=== PATIENT | female | born 1950 | race Caucasian/White ===

== ENCOUNTER 2016-11-08 22:24 | Emergency (ER) | payer OTHER ==
[~2016-11-08] VITALS: Ht 160 cm; Wt 59.1 kg
[2016-11-09] MEDS ORDERED: MORPHINE 4 MG/ML 1ML SYRINGE IV ONE (00:15)
[2016-11-09 00:30] LABS: ALBUMIN 3.8 GM/DL (3.2-5.2); ALKALINE PHOSPHATASE 82 U/L (45-117); ALT/SGPT 17 U/L (12-78); AMYLASE 51 U/L (25-115); ANION GAP 5 MEQ/L (8-16); AST/SGOT 11 U/L (15-37); BILIRUBIN,DIRECT < 0.1 MG/DL (0.0-0.2); BILIRUBIN,TOTAL 0.5 MG/DL (0.2-1.0); BLOOD UREA NITROGEN 16 MG/DL (7-18); CALCIUM LEVEL 8.6 MG/DL (8.8-10.2); CARBON DIOXIDE LEVEL 29 MEQ/L (21-32); CHLORIDE LEVEL 105 MEQ/L (98-107); CREATININE FOR GFR 1.04 MG/DL (0.55-1.02); GLOMERULAR FILTRATION RATE 56.3 (>45); GLUCOSE, FASTING 97 MG/DL (80-110); POTASSIUM SERUM 3.6 MEQ/L (3.5-5.1); SODIUM LEVEL 139 MEQ/L (136-145); TOTAL PROTEIN 7.6 GM/DL (6.4-8.2)
[2016-11-09] MEDS ORDERED: INDO50SU2 PR (00:47)
[2016-11-09] MEDS ORDERED: ISOVUE-370 76% 100ML VIAL (Q9967) As Ordered ONE (00:47)
[2016-11-09 01:12] LABS: BASO % 0.5 % (0.0-1.0); EOS # 0.5 K/mm3 (0.0-0.50); EOS % 5.3 % (0.0-3.0); LARGE UNSTAINED CELL # 0.2 K/mm3 (0.0-0.4); LARGE UNSTAINED CELL % 1.6 % (0.0-4.0); LYMPH # 1.2 K/mm3 (1.5-4.5); LYMPH % 12.9 % (24.0-44.0); MEAN CORPUSCULAR HEMOGLOBIN 30.9 pg (27.0-33.0); MEAN CORPUSCULAR HGB CONC 33.7 g/dl (32.0-36.5); MEAN CORPUSCULAR VOLUME 91.5 fl (80.0-96.0); MONO # 0.4 K/mm3 (0.0-0.8); MONO % 4.7 % (0.0-5.0); NEUTROPHILS # 6.8 K/mm3 (1.8-7.7); NEUTROPHILS % 74.9 % (36.0-66.0); PLATELET COUNT, AUTOMATED 275 k/mm3 (150-450); RED CELL DISTRIBUTION WIDTH 13.3 % (11.5-14.5); WHITE BLOOD COUNT 9.1 K/mm3 (4.0-10.0)
[2016-11-09] MEDS ORDERED: CIPROFLOXACIN 400 MG in APPROPRIATE DILUENT 1 EA IV ONE (01:45)
[2016-11-09] MEDS ORDERED: PHENAZOPYRIDINE 100 MG TAB PO ONE (01:45)
--- NOTE | 2016-11-09 01:51 | REPUSA ---
CLINICAL HISTORY: Abdominal pain. TECHNIQUE: Multiple axial, sagittal and coronal CT images were obtained through the abdomen and pelvi s after administration of intravenous contrast material. COMMENTS: Diffusely thickened bladder suggestive of cystitis. Hysterectomy. Colonic diverticulosis. Minimal thickening of the proximal sigmoid colon. Mild hepatomegaly with fatty liver infiltration. Scattered simple hepatic cysts with the largest measuring 6 mm. There is no intra or extrahepatic biliary ductal dilatation. The spleen is normal. The gallbladder is within normal limits. The pancreas is of normal contour and attenuation characteristics. There is no evidence of adrenal mass. Both kidneys demonstrate prompt and equal nephrograms. The kidneys are normal in size, shape and conf iguration. There is no evidence of renal or ureteral mass. No renal or ureteral calculi are identifie d. There is no hydroureter or hydronephrosis. No evidence for appendicitis. No evidence for small or large bowel obstruction. There is no evidence of abdominal ascites or lymphadenopathy. There is no evidence of intrinsic or extrinsic bladder mass. There is no pelvic ascites or lymphadeno maikel. Images of the lung bases show no evidence of pleural or parenchymal mass. There are no pleural effusi ons. The bony structures are free of lytic or blastic lesions. Multilevel degenerative changes are seen in volving the thoracolumbar spine. Scattered calcifications are seen involving the aorta and major bran ches compatible with atherosclerosis. IMPRESSION: Mild hepatomegaly with fatty liver infiltration. Scattered simple hepatic cysts. Cystitis. Mildly thickened proximal sigmoid colon. Underdistention, spasm versus minimal colitis. Colonic diverticulosis. Thank you for your kind referral of this patient.
[2016-11-09] MEDS ORDERED: NS 1,000 ML IV ONE (02:00)
[2016-11-09] MEDS ORDERED: CIPR-249 PO (03:02)
[2016-11-09 03:30] VITALS: BP 137/57
--- NOTE | 2016-11-09 06:49 | ED PDOC ---
Post-Departure Follow-Up certified letter sent to pt re formal read of ct abd/p. see result,. needs fu for colitis - possible. no pcp documente.d Javier Mcmanus MD Nov 09, 2016 06:49
== END 2016-11-09 03:36 | disposition home or self-care (01) ==
LOC: M ED 11-09
DX: N30.00 Acute cystitis without hematuria (principal)
CPT/HCPCS: 74177; 80048; 80076; 81001; 82150; 83690; 85025; 87088; 87186; 96374; 99283; J0744; Q9967